=== PATIENT | female | born 1970 | race Caucasian/White ===

== ENCOUNTER 2022-03-28 09:20 | Outpatient (CLI) | payer OTHER, SELFPAY | END 2022-03-28 09:21 | disposition home or self-care (01) | LOC: OP CLINIC 09:23 | PROVIDERS: PCP Physician Assistant Medical; Visit Provider Surgery | DX: Z12.11 Encounter for screening for malignant neoplasm of colon (principal); K63.5 Polyp of colon; K57.30 Diverticulosis of large intestine without perforation or abscess without bleeding | CPT/HCPCS: 45385; 88305; J1200; J2250; J2405; J3010 ==

== ENCOUNTER 2023-01-30 09:31 | Outpatient (CLI) | payer OTHER, SELFPAY | END 2023-01-30 09:32 | disposition home or self-care (01) | LOC: NFLDREF 19:06 | PROVIDERS: PCP Physician Assistant Medical; Referring Provider Physician Assistant Medical; Visit Provider Physician Assistant Medical | DX: E53.8 Deficiency of other specified B group vitamins (principal); E55.9 Vitamin D deficiency, unspecified; E78.1 Pure hyperglyceridemia; G35 Multiple sclerosis; R53.83 Other fatigue | CPT/HCPCS: 80053; 80061; 82306; 82607; 84443 ==

== ENCOUNTER 2023-04-17 15:31 | Outpatient (CLI) | payer OTHER, SELFPAY ==
--- NOTE | 2023-04-17 15:40 | CRLHL7_ITS ---
For Patients: As a result of the Century Cures Act, medical imaging exams and procedure reports are released immediately into your electronic medical record. You may view this report before your referring provider. If you have questions, please contact your health care provider. BILATERAL SCREENING MAMMOGRAM WITH COMPUTER-AIDED DETECTION AND TOMOSYNTHESIS TECHNIQUE: CC and MLO views were obtained. These mammographic images have been obtained using full-field digital technique. These mammographic images were interpreted with the benefit of computer-aided detection. Breast Tomosynthesis was used in this interpretation. COMPARISON FILM: 10/10/21, 03/22/19, 02/27/18. FINDINGS: The breasts are heterogeneously dense, which may obscure small masses IMPRESSION: There is no radiographic evidence for malignancy. ASSESSMENT: BI-RADS Category 2: Benign RECOMMENDATION: Routine screening mammogram in 1 year. A lay language report of this examination will be provided to the patient. Gabino Sow M.D. Diagnostic Radiologist [email or web address] JEANETH/Dictated by: Gabino Sow MD @ 04/18/2023 8:36:00 AM (Electronically Signed)
== END 2023-04-17 15:32 | disposition home or self-care (01) ==
LOC: MAMMO 15:32
PROVIDERS: PCP Physician Assistant Medical; Visit Provider Physician Assistant Medical
DX: Z12.31 Encounter for screening mammogram for malignant neoplasm of breast (principal); R92.2 Inconclusive mammogram
CPT/HCPCS: 77063; 77067

== ENCOUNTER 2023-05-13 16:15 | Outpatient (RCR) | payer OTHER, SELFPAY | END 2023-07-15 16:06 | disposition home or self-care (01) | PROVIDERS: PCP Physician Assistant Medical; Visit Provider Physician Assistant Medical | DX: M25.551 Pain in right hip (principal); M25.552 Pain in left hip; M54.50 Low back pain, unspecified; M46.1 Sacroiliitis, not elsewhere classified; Z51.89 Encounter for other specified aftercare | CPT/HCPCS: 97110; 97140; 97161 ==

== ENCOUNTER 2024-09-30 08:41 | Outpatient (CLI) | payer OTHER, SELFPAY | END 2024-09-30 08:42 | disposition home or self-care (01) | PROVIDERS: PCP Physician Assistant Medical; Visit Provider Registered Nurse | DX: E55.9 Vitamin D deficiency, unspecified (principal); E78.5 Hyperlipidemia, unspecified; E78.1 Pure hyperglyceridemia | CPT/HCPCS: 80061; 82306; 84443 ==

== ENCOUNTER 2024-11-12 07:36 | Outpatient (CLI) | payer OTHER, SELFPAY ==
--- NOTE | 2024-11-12 07:45 | CRLHL7_ITS ---
For Patients: As a result of the Century Cures Act, medical imaging exams and procedure reports are released immediately into your electronic medical record. You may view this report before your referring provider. If you have questions, please contact your health care provider. BILATERAL SCREENING MAMMOGRAM WITH COMPUTER-AIDED DETECTION AND TOMOSYNTHESIS TECHNIQUE: CC and MLO views were obtained. These mammographic images have been obtained using full-field digital technique. These mammographic images were interpreted with the benefit of computer-aided detection. Breast Tomosynthesis was used in this interpretation. COMPARISON FILM: 04/17/23, 10/10/21, 03/22/19. FINDINGS: The breasts are heterogeneously dense, which may obscure small masses. IMPRESSION: There is no radiographic evidence for malignancy. ASSESSMENT: BI-RADS Category 2: Benign RECOMMENDATION: Routine screening mammogram in 1 year. A lay language report of this examination will be provided to the patient. Gabino Sow M.D. Diagnostic Radiologist [email or web address] SP/Dictated by: Gabino Sow MD @ 11/12/2024 1:11:00 PM (Electronically Signed)
== END 2024-11-12 07:37 | disposition home or self-care (01) ==
LOC: MAMMO 07:37
PROVIDERS: PCP Physician Assistant Medical; Visit Provider Registered Nurse
DX: Z12.31 Encounter for screening mammogram for malignant neoplasm of breast (principal); R92.333 Mammographic heterogeneous density, bilateral breasts
CPT/HCPCS: 77063; 77067

== ENCOUNTER 2025-04-05 17:51 | Outpatient (CLI) | payer OTHER, SELFPAY | END 2025-04-05 17:52 | disposition home or self-care (01) | LOC: NFLDREF 17:51 | PROVIDERS: PCP Physician Assistant Medical; Visit Provider Registered Nurse | DX: N64.3 Galactorrhea not associated with childbirth (principal) | CPT/HCPCS: 84146 ==

== ENCOUNTER 2025-04-19 08:06 | Outpatient (CLI) | payer OTHER, SELFPAY ==
--- NOTE | 2025-04-19 08:15 | CRLHL7_ITS ---
For Patients: As a result of the Century Cures Act, medical imaging exams and procedure reports are released immediately into your electronic medical record. You may view this report before your referring provider. If you have questions, please contact your health care provider. INDICATION: Postmenopausal bleeding COMPARISON: 03/09/2020, 06/11/2019 TECHNIQUE: 2D ahuja-scale and color Doppler images were acquired of the pelvis using a transabdominal and transvaginal approach. Transvaginal imaging performed to better visualize the endometrial stripe and ovaries. FINDINGS: Sonographic images demonstrate a normal size and smooth outer contour of the uterus. Uterus measures 8.9 cm in length by 4.7 cm in AP diameter by 6.7 cm in transverse dimension. Right-sided intramural fibroid is present which measures 1.6 x 1.0 x 1.1 cm. Hypoechoic cervical nabothian cyst measures 12 x 7 x 12 millimeters. The endometrial lining appears 9.7 mm in composite thickness. Calcification associated with the endometrium measures 4 x 3 x 3 millimeters. The right ovary measures 2.5 x 1.5 x 1.6 cm in size and the left ovary measures 1.7 x 1.1 x 2.0 cm. The ovaries demonstrate normal arterial and venous blood flow on color Doppler analysis. There are no suspicious fluid collections within the cul-de-sac. IMPRESSION: Right-sided intramural fibroid is present which measures 1.6 cm. Endometrial thickness 9.7 millimeters. Incidental calcification noted. No endometrial fluid. Dictated by Gabino Sow MD @ 04/19/2025 11:12:29 AM (Electronically Signed)
--- NOTE | 2025-04-19 09:45 | CRLHL7_ITS ---
For Patients: As a result of the Century Cures Act, medical imaging exams and procedure reports are released immediately into your electronic medical record. You may view this report before your referring provider. If you have questions, please contact your health care provider. DIGITAL DIAGNOSTIC BILATERAL MAMMOGRAM USING TOMOSYNTHESIS AND COMPUTER-AIDED DETECTION BILATERAL BREAST ULTRASOUND CLINICAL HISTORY: BILATERAL breast nipple discharge. COMPARISON: 11/12/2024, 04/17/2023, 10/10/2021. TECHNIQUE: Digital BILATERAL mammogram in four projections with computer-aided detection. Tomosynthesis was used in this interpretation. Real-time ultrasound imaging of BILATERAL breast with imaging documentation. BREAST COMPOSITION: The breasts are heterogeneously dense, which may obscure small masses. FINDINGS: 3D CC/MLO BILATERAL mammogram images submitted. No suspicious masses or architectural distortion. No adenopathy. Targeted BILATERAL ultrasound performed. In the subareolar space bilaterally, there is normal fibroglandular tissue. No duct ectasia or solid lesion. No suspicious findings. IMPRESSION: No evidence of malignancy. RECOMMENDATIONS: Routine screening mammography. A lay language report of this examination will be provided to the patient. BI-RADS Category 2: Benign Dictated by Gabino Sow MD @ 04/19/2025 10:23:37 AM jj/Dictated by: Gabino Sow MD @ 04/19/2025 10:23:00 AM (Electronically Signed)
--- NOTE | 2025-04-19 10:15 | CRLHL7_ITS ---
For Patients: As a result of the Cures Act, medical imaging exams and procedure reports are released immediately into your electronic medical record. You may view this report before your referring provider. If you have questions, please contact your health care provider. SEE DIGITAL DIAGNOSTIC BILATERAL MAMMOGRAM PERFORMED SAME DAY CRL:[email or web address] hess/Dictated by: Gabino Sow MD @ 04/19/2025 10:23:00 AM (Electronically Signed)
== END 2025-04-19 08:07 | disposition home or self-care (01) ==
LOC: US 08:06
PROVIDERS: PCP Physician Assistant Medical; Visit Provider Registered Nurse
DX: N95.0 Postmenopausal bleeding (principal); D25.1 Intramural leiomyoma of uterus; R93.89 Abnormal findings on diagnostic imaging of other specified body structures; N64.3 Galactorrhea not associated with childbirth
CPT/HCPCS: 76642; 76830; 76856; 77066; G0279

== ENCOUNTER 2025-06-14 06:09 | Day surgery (SDC) | payer OTHER, SELFPAY ==
[2025-06-14 06:15] VITALS: BMI 28.5
[2025-06-14] MEDS: LACTATED RINGERS 1000 ML 1,000 ML 100 ML IV (06:15)
[2025-06-14 06:50] VITALS: BP 126/95; PULSE 77; RESP 14; TEMP 37; O2SAT 97
[2025-06-14] MEDS: LIDOCAINE 1% MDV 10 ML INJECTION (07:37)
[2025-06-14] MEDS: BUPIVACAINE 0.25% 30 ML 10 ML INJECTION (07:37)
--- NOTE | 2025-06-14 07:42 | SUR.OPER ---
PATIENT QUESTIONS ANSWERED SATISFACTORILY PREOPERATIVELY. PATIENT BROUGHT TO OR #4 PER CART. Patient positioned supine on OR #4 bed.? Perioperative team supported arms bilaterally on arm boards.? Final approval of positioning by surgeon. CONTINUOUS IRRIGATION OF THE UTERUS WITH NACL DURING PROCEDURE.
--- NOTE | 2025-06-14 08:01 | W.PM.GYNPROC ---
Procedure Note Date of procedure: 06/14/25 Will [facility] bill your pro fee for this procedure?: Yes Pre-op diagnosis: 1. Postmenopausal bleeding 2. History of endometrial ablation 3. History endometrial polyps 4. Unsuccessful office endometrial biopsy attempt due to cervical stenosis Post-op diagnosis: Same. Procedure: Hysteroscopy, D&C via TruClear Anesthesia: MAC and local ( paracervical block) Complications: None. Surgeon: Fabiana Sandoval MD Estimated blood loss (mL): 2 Pathology: specimen obtained, sent to pathology ( endometrial curettings via TruClear) Condition: stable Disposition: same day Findings: Stenotic internal cervical os. Mildly thickened endometrial tissue anteriorly and posteriorly. Intrauterine synechiae in the midline. Normal right tubal ostia, left tubal ostia more difficult to visualize. Procedure Description: After obtaining informed consent, the patient was taken to the operating room where she received monitored anesthesia care. She was prepared and draped in the normal sterile fashion, in the dorsal lithotomy position. An open-sided bivalve speculum was introduced into the vagina and the cervix visualized. The anterior lip of the cervix was grasped with a single-tooth tenaculum for traction. A paracervical block was then administered using a total of 20 mL of a 50/50 mixture of 0.25% Marcaine and 1% lidocaine plain. I attempted to dilate the cervix using a small Hegar dilator, but met resistance at the internal cervical os. I inserted a 5 mm hysteroscope through the external cervical os and determined the orientation of the endocervix. The hysteroscope was removed.Tiny cervical dilators were then used to palpably identify the internal cervical os and start the dilation process. the cervix was dilated to a #5 Hegar dilator. The hysteroscope was then advanced under direct visualization through the cervix into the uterine cavity. Sterile normal saline was used as distending medium. The uterine cavity was carefully inspected with the findings noted above. Pictures were taken for documentation purposes. The TruClear morcellator was inserted through the operating channel in the hysteroscope. The morcellator was used to remove the thickened endometrial tissue and some of the synechiae. The hysteroscope was then removed. The tenaculum was removed. The speculum was removed. The patient tolerated the procedure well. Sponge, lap, needle, and instrument counts reported as correct x2. She received 30 mg of IV Toradol. The patient was taken to the recovery room awake in a stable condition. Fluid deficit: 70 mL measured in the canister, with approximately 10 mL lost on the floor and drapes, for a total fluid deficit of 60 mL.
[2025-06-14 08:10] VITALS: BP 119/74; PULSE 83; RESP 16; TEMP 36.9; O2SAT 98
--- NOTE | 2025-06-14 08:10 | P.ANES_ITS ---
Anesthesia Charges Start Date/Time Anesthesia Start Date: 06/14/25 Anesthesia Start Time: 07:15 Stop Date/Time Anesthesia Stop Date: 06/14/25 Anesthesia Stop Time: 08:07 Coding CPT Codes CPT Codes: ANESTH HYSTEROSCOPE/GRAPH - 48063 ([id number]) QK - CONVERTIBLE POWER SHOVEL OPERATOR 2-4 CNCRNT ANES PROC, QX - RIB TRIM SEPARATOR SVC W/ MD MED DIRECTION, P3 - PATIENT W/SEVERE SYS DISEASE
--- NOTE | 2025-06-14 08:10 | W.ANESCHARGE ---
Anesthesia Charges Start Date/Time Anesthesia Start Date: 06/14/25 Anesthesia Start Time: 07:15 Stop Date/Time Anesthesia Stop Date: 06/14/25 Anesthesia Stop Time: 08:07 Coding CPT Codes CPT Codes: ANESTH HYSTEROSCOPE/GRAPH - 31069 ([id number]) QK - HOUSE DECORATOR 2-4 CNCRNT ANES PROC, QX - HAND PACKER/PACKAGER SVC W/ MD MED DIRECTION, P3 - PATIENT W/SEVERE SYS DISEASE
[2025-06-14 08:15] VITALS: BP 111/68; PULSE 68; RESP 16; O2SAT 100
[2025-06-14 08:30] VITALS: BP 110/67; PULSE 66; RESP 16; O2SAT 98
[2025-06-14 08:45] VITALS: BP 104/75; PULSE 78; RESP 16; TEMP 36.8; O2SAT 99
--- NOTE | 2025-06-14 09:16 | P.ANES_ITS ---
Anesthesia Charges Start Date/Time Anesthesia Start Date: 06/14/25 Anesthesia Start Time: 07:15 Stop Date/Time Anesthesia Stop Date: 06/14/25 Anesthesia Stop Time: 08:07 Coding CPT Codes CPT Codes: ANESTH HYSTEROSCOPE/GRAPH - 22149 ([id number]) QK - MECHANIC HELPER 2-4 CNCRNT ANES PROC, QX - LABEL OPERATOR SVC W/ MD MED DIRECTION, P3 - PATIENT W/SEVERE SYS DISEASE
--- NOTE | 2025-06-14 09:16 | W.ANESCHARGE ---
Anesthesia Charges Start Date/Time Anesthesia Start Date: 06/14/25 Anesthesia Start Time: 07:15 Stop Date/Time Anesthesia Stop Date: 06/14/25 Anesthesia Stop Time: 08:07 Coding CPT Codes CPT Codes: ANESTH HYSTEROSCOPE/GRAPH - 69380 ([id number]) QK - MAGNETIC TAPE TYPEWRITER OPERATOR 2-4 CNCRNT ANES PROC, QX - SALESFORCE SPECIALIST SVC W/ MD MED DIRECTION, P3 - PATIENT W/SEVERE SYS DISEASE
== END 2025-06-14 09:05 | disposition home or self-care (01) ==
LOC: OR 06:10
PROVIDERS: PCP Physician Assistant Medical; Visit Provider Obstetrics & Gynecology
PROC: 0UDB8ZZ Extraction of Endometrium, Via Natural or Artificial Opening Endoscopic (ICD-10-PCS; CPT 58558; principal; 2025-06-14 07:15)
DX: N95.0 Postmenopausal bleeding (principal); R93.89 Abnormal findings on diagnostic imaging of other specified body structures; N85.6 Intrauterine synechiae
CPT/HCPCS: 58558; 00952; J2003; C1782; J0665; J1100; J2250; J2405; J2704; J3010; J3490; J7120